=== PATIENT | female | born 1955 | race Caucasian/White ===

== ENCOUNTER 2019-04-16 12:37 | Emergency (ER) | payer MEDICARE ==
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
[2019-04-16] MEDS ORDERED: Lidocaine 2% VISCOUS* 15 ML UDC PO ONE (13:07)
[2019-04-16] MEDS ORDERED: NS 0.9% 1000 ML** 1,000 ML IV ONE (13:08)
[2019-04-16 13:09] LABS: ABS Basophils 0.1 10^3/ul (0-0.2); ABS Eosinophils 0.1 10^3/ul (0-0.6); ABS Lymphocytes 3.7 10^3/ul (1.0-4.8); ABS Monocytes 0.8 10^3/ul (0-0.8); ABS Neutrophils 1.7 10^3/ul (1.5-7.7); Eosinophil % 0.9 %; Hematocrit 35 % (35-47); Hemoglobin 12.4 g/dL (12.0-16.0); Lymphocyte % 59.5 %; Mean Corpuscular HGB Conc 35 g/dL (31-36); Mean Corpuscular Hemoglobin 31 pg (27-31); Mean Corpuscular Volume 87 fL (80-97); Mean Platelet Volume 8.1 fL (7.4-10.4); Nucleated Red Blood Cells % 0.3; Platelet Count 159 10^3/uL (150-450); Red Blood Count 4.05 10^6 /uL (3.70-4.87); Red Cell Distribution Width 14 % (10-15); White Blood Count 6.3 10^3/uL (3.5-10.8)
[2019-04-16 13:14] LABS: INR 1.03 (0.82-1.09)
[2019-04-16] MEDS ORDERED: Al Hydrox/Mg Hydrox/Simet LIQ* 30 ML UDC PO ONE (13:22)
[2019-04-16 13:36] LABS: Albumin 3.8 g/dL (3.2-5.2); Calcium 9.3 mg/dL (8.6-10.3); Potassium 2.9 mmol/L (3.5-5.0); Total Bilirubin 0.6 mg/dL (0.2-1.0)
[2019-04-16 13:43] LABS: Albumin/Globulin Ratio 1.2 (1-3); BUN/Creatinine Ratio 8.6 (8-20); EGFR African American 85.9 (>60); Globulin 3.2 g/dL (2-4)
[2019-04-16 13:50] LABS: Influenza A Molecular Negative (Negative); Influenza B Molecular Negative (Negative)
--- OUTSIDE RECORDS SUMMARY | 2019-04-16 14:05 | XMS REPORT | Continuity of Care Document ---
:1955 External Reference #:[id number] Author Name Kristofer Angel Address [address] [place] [address] Care Team Providers Name Role Phone [employer] [facility] [employer] Care Team Information Wedding Cake [employer] [facility] - Care Team Information Wedding Cake Designer [phone] Gastroenterology Juanita Cardoso - Dermatology Care Team Information Wedding Cake Designer [facility] - Diagnostic Care Team Information Wedding Cake Designer [phone] Radiology Owen Damon MD - Family Medicine Care Team Information Wedding Cake Designer [phone] Art Villalobos ([place] - Direct) Care Team Information Wedding Cake Designer - Otolaryngology Jamie Downey MD - Cardiovascular Care Team Information Wedding Cake Designer Disease Yasmeen Corral - Pulmonary Disease Care Team Information Wedding Cake Designer [facility] - Care Team Information Wedding Cake Designer [phone] [facility] Physical Care Team Information Wedding Cake Designer [phone] Therapy - Physical Therapy Problems Active Problems Provider Date Hyperlipidemia Owen Damon M.D. Onset: 11/28/2010 Depressive disorder Owen Damon M.D. Onset: 03/01/2011 Benign essential hypertension Owen Damon M.D. Onset: 03/01/2011 Hypothyroidism Owen Damon M.D. Onset: 03/01/2011 Non-neoplastic nevus Owen Damon M.D. Onset: 03/01/2011 Obesity Owen Damon M.D. Onset: 03/19/2012 Obstructive sleep apnea syndrome Owen Damon M.D. Onset: 03/19/2012 History of polyp of colon Owen Damon M.D. Onset: 03/12/2015 Knee pain Owen Damon M.D. Onset: 12/24/2015 Essential tremor Owen Damon M.D. Onset: 12/29/2016 Urinary tract infectious disease Owen Damon M.D. Onset: 02/25/2019 Headache Owen Damon M.D. Onset: 02/25/2019 Other hyperlipidemia Owen Damon M.D. Onset: 02/16/2018 Social History Type Date Description Comments Sex Unknown Tobacco Use Start: Unknown Nonsmoker ETOH Use Occasionally consumes beer Tobacco Use Start: Unknown Patient has never smoked Smoking Status Reviewed: 03/15/19 Patient has never smoked Allergies, Adverse Reactions, Alerts Active Allergies Reaction Severity Comments Date Sulfa Drugs rash 05/30/1997 Spider Bites hives 11/05/2013 Medications Active Medications SIG Qnty Indications Ordering Date Provider Physical Therapy treatment and Love evaluation of [place]dor[place], 0 cervicogenic Afnp-C headache Meclizine HCL take1- 2 tablets 30tabs H81.312 Oliva Burgess, 25mg Tablets by mouth at hs as CEMENT BLOCK MAKER 9 needed for dizziness Hydrochlorothiazide take 1 tablet once 90tabs Owen F. 25mg daily Shallish, 3 Tablets M.D. Nystatin apply twice a day 1bottle Owen F. [id number]/GM Powder as needed Shallish, 3 M.D. Atorvastatin Calcium Take 1 Tablet By 90tabs Owen F. 10mg Mouth Every Other Shallish, 3 Tablets Day M.D. Fluoxetine HCL take 2 capsules 180caps Owen F. 40mg Capsules once daily Shallish, 2 M.D. Xanax 1-2 tabs by mouth 60tabs Owen F. 0.25mg Tablets as needed Shallish, 6 M.D. Melatonin qhs Owen F. 10mg Capsules Shallish, 0 M.D. Multi-Vitamin/Minerals 1 po qd 90tabs Owen F. Tablets Shallish, 0 M.D. Levothyroxine Sodium Take 1 Tablet By 90tabs Owen F. 50mcg Mouth Once Daily Shallish, 0 Tablets M.D. Carvedilol 1 by mouth every 90tabs Owen F. 3.125mg Tablets day Shallish, 0 M.D. History Medications Amoxicillin/Clavulanate 1 twice a 14tabs Owen F. 03/03/2019 - Potassium day w/ Shallish, M.D. 03/14/2019 875-125mg Tablets food. Ciprofloxacin HCL 1 tab by 14tabs N39.0 Oliva Burgess, 02/08/2019 - 250mg Tablets mouth twice CEMENT BLOCK MAKER 02/25/2019 a day x 7 days Immunizations CPT Code Status Date Vaccine Lot # [id number] Given 02/25/2019 Pneumococcal Conjugate Vacc-13 [id number] Given 12/20/2017 Influenza Vac, [place]riv[place], [place] [address] Given 12/29/2016 Influenza vac quadrivalent preservative free 6 [id number] months and up 46[address] Given 12/24/2015 Influenza Vac, Quadrivalent, Slit Virus, Im [id number] 22591 Given 03/12/2015 Influenza Vac, Quadrivalent, Slit Virus, Im [id number] 51937 Given 01/01/2013 DO Not Use Split Influenza Virus Vaccine 00336 Given 12/27/2011 DO Not Use Split Influenza Virus Vaccine [id number] Given 03/01/2011 Split Influenza Medicare: Fluzone [id number] 80954 Given 01/06/2010 DO Not Use Split Influenza Virus Vaccine [id number] 01125 Given 01/26/2009 Tdap Tetanus, W Pertussis [id number] 44683 Given 12/13/2007 DO Not Use Split Influenza Virus Vaccine [id number] 43830 Given 06/09/1998 Td Immunization, For Use In Individuals 7 Years Or Older Vital Signs Date Vital Result Comment 03/15/2019 9:56am BP Systolic 134 mmHg BP Diastolic 66 mmHg Heart Rate 78 /min Body Temperature 97.3 F Respiratory Rate 16 /min Height 59 inches 4'11" Weight 167.12 lb BMI (Body Mass Index) 33.8 kg/m2 02/25/2019 2:03pm BP Systolic 148 mmHg BP Diastolic 88 mmHg Heart Rate 64 /min Body Temperature 98.4 F Height 59 inches 4'11" Weight 168.00 lb BMI (Body Mass Index) 33.9 kg/m2 Results Test Acquired Date Facility Test Result H/L Range Note Ua - Micro (Fma) 02/25/2019 [facility] Appearance clear (607)- - Color yellow Glucose, Urine (Fma/CMC/CTX) neg Bilirubin neg Ketones neg SP Grav <=1.005 Blood trace PH 5.5 Protein neg Urobil 0.2 Nitrite neg Leukocytes (Fma/CMC/Centrex) positive Hyaline - /Lpf Granular - /Lpf WBC (Fma,Centrex) 0-2 RBC 2-3 Mucus (Fma/CBC/Centrex) - /Lpf Epith rare /Lpf Bacteria 4+ /Hpf Amorphous (Fma/CMC/Centrex) - /Lpf Crystals, Fluid (Fma/CMC/CTX) - Z#Comments - Urine Culture And 02/25/2019 [facility] Urine Culture SEE RESULT 1 Sensitivities BELOW Comprehensive 02/25/2019 [facility] Natali(a) Sodium 141 mEq/L 134-149 Metabolic Prof Potassium 3.7 mEq/L 3.6-5.5 Chloride 95 mEq/L 94-112 Carbon Dioxide 28 mEq/L 21-32 Glucose 76 mg/dL 70-105 BUN 12 mg/dL 6-26 Creatinine 0.7 mg/dL 0.6-1.4 BUN/Creat Ratio 17.1 CALC 8.0-36.0 Calcium 10.3 mg/dL High 8.6-10.2 2 Total Protein 7.7 g/dL 6.4-8.3 Albumin 4.4 g/dL 3.8-5.5 Globulin 3.3 g/dL 2.0-4.8 A/G Ratio 1.3 CALC 0.6-2.3 Alk. Phosphatase 64 U/L 30-110 Alt (SGPT) 24 U/L 7-35 Ast (Sgot) 24 U/L 5-34 Total Bilirubin 0.5 mg/dL 0.2-1.3 GFR Non- >60 ml/min/1.73m^ >=60 GFR >60 ml/min/1.73m^ >=60 Lipid Profile 02/25/2019 Andrew Natali([facility]) Cholesterol 210 mg/dL High 120-200 Triglycerides 233 mg/dL High 30-200 HDL Cholesterol 40 mg/dL 30-85 LDL (Calculated) 123 CALC 0-129 VLDL Cholesterol 47 mg/dL 0-50 HDL Risk Factor 5.3 CALC High 0.0-4.4 Laboratory test finding 02/25/2019 Andrew Hurst([facility]) TSH 3.51 mIU/L 0.50-6.00 Free T4 0.83 ng/dL 0.75-1.54 CK 156 U/L High 26-140 3 CBC Electronic a 02/25/2019 Andrew Hurst([facility]) WBC 6.3 x10^3/UL 4.0- 10.0 RBC 4.30 x10^6/UL 3.93-6.00 HGB 13.4 g/dL 12.0-17.0 HCT 39 % 35-50 MCV 90.2 fL 80.0-95.0 MCH 31.2 pg 25.6-32.2 MCHC 34.5 g/dL 32.2-36.0 RDW-CV 13.0 % 11.6-14.4 PLT 265 x10^3/UL 163-400 MPV 10.0 fL 9.4-12.4 Corazon# 2.93 x10^3/UL 1.56-6.13 Lymph# 2.26 x10^3/UL 1.18-3.74 [place]# 0.75 x10^3/UL 0.24-0.82 Eos # 0.3 x10^3/UL 0.0-0.5 Baso # 0.06 x10^3/UL 0.01-0.08 Corazon% 46.7 % 34.0-70.0 Lymph % 36.1 % 20.0-52.0 [place]% 12.0 % 5.0-12.0 Eos% 4.2 % 0.7-7.0 Baso% 1.0 % 0.1-1.2 Laboratory test 02/25/2019 [facility] [place] Thinprep SEE RESULT 4 finding w/rfx([facility]) BELOW Ua - Micro (a) 02/08/2019 [facility] Appearance cloudy (607)- - Color yellow Glucose, Urine (Fma/CMC/CTX) neg Bilirubin neg Ketones neg SP Grav 1.010 Blood large PH 6.0 Protein ssa trace Urobil 0.2 Nitrite positive Leukocytes (Fma/CMC/Centrex) large Hyaline - /Lpf Granular - /Lpf WBC (Fma,Centrex) >100 RBC 20-30 Mucus (Fma/CBC/Centrex) - /Lpf Epith rare /Lpf Bacteria 3+ /Hpf Amorphous (Fma/CMC/Centrex) - /Lpf Crystals, Fluid (Fma/CMC/CTX) - Basic Metabolic Profile 01/04/2019 Morales Natali(a) Sodium 138 mEq/L 134-149 Potassium 3.6 mEq/L 3.6-5.5 Chloride 101 mEq/L 94-112 Carbon Dioxide 30 mEq/L 21-32 Glucose 139 mg/dL High 70-105 BUN 12 mg/dL 6-26 Creatinine 0.7 mg/dL 0.6-1.4 BUN/Creat Ratio 17.1 CALC 8.0-36.0 Calcium 9.9 mg/dL 8.6-10.2 GFR Non- >60 ml/min/1.73m^ >=60 GFR >60 ml/min/1.73m^ >=60 1 SEE RESULT BELOW Name: DOT CORONA : [address]: Owen Damon MD Acct: [id number] Unit: [id number] AGE: 63 Location: [facility] Re02/25/19 SEX: F Status: REG REF SPEC: [id number] DAVID: 02/25/[address] [facility] DR: Owen Damon MD REQ: [id number] RECD: 02/25/19 STATUS: COMP _ SOURCE: URINE SPDES: ORDERED: Urine Culture COMMENTS: [id number] lazar urine top Urine Source: Random Procedure Result Reported Site Urine Culture Final 02/28/19- 1101 ML Organism 1 ESCHERICHIA COLI Phelps Count >100,000 (Many) CFU/ML 1. ESCHERICHIA COLI M.I.C. RX --------- ------ Ampicillin >=32 R Cefazolin <=4 S Cefepime <=1 S Ceftriaxone <=1 S Ciprofloxacin 0.5 S Gentamicin <=1 S Levofloxacin 1 S Meropenem <=0.25 S Nitrofurantoin <=16 S Tetracycline >=16 R Pipercillin/Tazobactam <=4 S Trimethoprim/Sulfamethoxazole <=20 S Amoxicillin/Clavulanic Acid 8 S Aztreonam <=1 S Contact the Microbiology Department for any additional antibiotic reporting. * - Main Lab . END OF REPORT DEPARTMENT OF PATHOLOGY, [address] [place] [address] Charles Escobedo M.D. Director [facility] # [id number] 2 RESULTS VERIFIED BY REPEAT ANALYSIS 3 RESULTS VERIFIED BY REPEAT ANALYSIS 4 SEE RESULT BELOW Name: DOT CORONA Emeli : [address]: Owen Damon MD Acct: [id number] Unit: [id number] AGE: 63 Location: [facility] Re02/25/19 SEX: F Status: REG REF SPEC: [id number] DAVID: 02/25/[address] [facility] DR: Owen Damon MD REQ: [id number] RECD: 02/25/19 STATUS: SOUT _ ORDERED: TP IMAGE ANALYS, HPV/Thin Prep COMMENTS: [id number] FINAL DIAGNOSIS Negative for Intraepithelial lesion or Malignancy HPV RESULTS Date Time Test Result Flag (u) Normal Range 02/25/19 1542 HPV REGINALD Negative Negative The high-risk HPV types detected by the assay include: 16, 18, 31, 33, 35, 39, 45, 51, 52, 56, 58, 59, 66, and 68. SPECIMEN(S) RECEIVED A. Ectocervical/Endocervical CYTOLOGY ADEQUACY Specimen Adequacy: Satisfactory of evaluation Transformation zone component cannot be definitely identified due to presence of atrophy or other hormonal changes CONTINUED ON NEXT PAGE DEPARTMENT OF PATHOLOGY, [facility] [place], [place] [address] Charles Escobedo M.D. Director [facility] # [id number] CYTOLOGY PATIENT INFORMATION Patient Information: HPV: High risk HPV RNA testing regardless of pap results. Actual Specimen Date: 02/25/19 Spec Date if unknown: 2015 ?: N Post Menopausal?: Y Hysterectomy?: N Previous Abnormal Pap Smears?:Y Signed by and Reported on: RICKEY Baum (ASCP) [id number] This Pap test was evaluated with the assistance of the Ligandal Test Imaging System. Due to cytologic findings at the manager basketball microscope, comprehensive manual rescreening by a Document Control Specialist may be required. The Pap Smear is a screening test designed to aid in the detection of premalignant and malignant conditions of the uterine cervix. It is not a diagnostic procedure and should not be used as the sole means of detecting cervical cancer. Both false- positive and false- negative reports do occur. Depending on your risk status, a Pap smear should be obtained and evaluated every 1-3 years. END OF REPORT DEPARTMENT OF PATHOLOGY, [address] [place] [address] Charles Escobedo M.D. Director [facility] # [id number] Procedures Date Code Description Status 01/27/2019 [id number] Mammogram Completed 03/03/2018 [id number] Mammogram Completed 02/08/2017 [id number] Mammogram Completed 04/17/2015 [id number] Colonoscopy Completed 03/20/2015 [id number] Mammogram Completed 12/30/2013 [id number] Mammogram Completed 03/28/2012 [id number] Mammogram Completed 03/09/2011 [id number] Mammogram Completed 02/08/2010 [id number] Mammogram Completed 03/17/2009 [id number] Colonoscopy Completed 02/06/2009 [id number] Mammogram Completed 12/21/2007 [id number] Mammogram Completed Medical Devices Description No Information Available Encounters Type Date Location Provider Dx Diagnosis Office Visit 02/25/2019 2:00p [facility] Owen Damon M.D. R51 Headache G47.33 Obstructive sleep apnea (adult) (pediatric) F32.89 Other specified depressive episodes I78.1 Nevus, non-neoplastic I10 Essential (primary) hypertension E03.9 Hypothyroidism, unspecified N39.0 Urinary tract infection, site not specified Z00.00 Encntr for general adult medical exam w/o abnormal findings E78.49 Other hyperlipidemia Z23 Encounter for immunization Office Visit 02/08/2019 3:30p Main Office KRISSY Villafuerte N39.0 Urinary tract infection, site not specified H81.312 Aural vertigo, left ear Office Visit 01/04/2019 9:30a Main Office KRISSY Villafuerte R51 Headache G47.33 Obstructive sleep apnea (adult) (pediatric) Assessments Date Code Description Provider 03/15/2019 N39.0 Urinary tract infection, site not Kristofer Angel specified 03/15/2019 R51 Headache Kristofer Angel 03/03/2019 N39.0 Urinary tract infection, site not Owen Damon M.D. specified 02/25/2019 R51 Headache Owen Damon M.D. 02/25/2019 G47.33 Obstructive sleep apnea (adult) Owen Damon M.D. (pediatric) 02/25/2019 F32.89 Other specified depressive episodes Owen Damon M.D. 02/25/2019 I78.1 Nevus, non-neoplastic Owen Damon M.D. 02/25/2019 I10 Essential (primary) hypertension Owen Damon M.D. 02/25/2019 E03.9 Hypothyroidism, unspecified Owen Damon M.D. 02/25/2019 N39.0 Urinary tract infection, site not Owen Damon M.D. specified 02/25/2019 Z00.00 Encounter for general adult medical Owen Damon M.D. examination without abnormal findings 02/25/2019 E78.49 Other hyperlipidemia Owen Damon M.D. 02/25/2019 Z23 Encounter for immunization Owen Damon M.D. 02/08/2019 N39.0 Urinary tract infection, site not KRISSY Villafuerte specified 02/08/2019 H81.312 Aural vertigo, left ear KRISSY Villafuerte 01/04/2019 R51 Headache KRISSY Villafuerte 01/04/2019 G47.33 Obstructive sleep apnea (adult) KRISSY Villafuerte (pediatric) Plan of Treatment Future Appointment(s):05/28/2019 10:00 am - Owen Damon M.D. at Main [facility]v6803/15/2019 - Esther Angel-CN39.0 Urinary tract infection, site not specifiedNew Labs:Ua - Micro (Fma), Ordered: 03/15/19Urine Culture (Fma/CMC) , Ordered: 03/15/19R51 HeadacheFollow up:Followup:. (Follow up)AllNew Medication :Physical Therapy - treatment and evaluation of cervicogenic headacheComments: Medication Management Patient Understands medications she's taking? Yes No Are there Barriers to Adherence? Yes No Has the patient been asked about herbal supplements and therapies, and OTC meds? Yes No Care Plan1. Patient has been queried about patient's goals/preferences and functional/lifestyle goals at relevant visits. If relevant, describe: na2. Treatment goals as explained to the patient: abovecontinued sx resolution further sotomayor eval and rx 3. Are there barriers to meeting treatment goals? Yes No If Yes, please describe:4. Self-Management goals as described to the patient: Yes No it does appear that your uti has responded to rx , we will do a test of cure rx for pt f/u routine and prn Functional Status Description No Information Available Mental Status Description No Information Available Referrals Refer to Dr Reason for Referral Status Appt Yasmeen Corral evalute and treat sleep apnea Created [address] [place] [address] [phone] [facility] evaluate and treat chronic daily Created headache [address] [place] [address] [place] [address] [phone] [facility] Physical PHYSICAL THERAPY evaluate and Created Therapy treat for neck and left shoulder pain [address] [place] [address] [phone]
[2019-04-16] MEDS ORDERED: Potassium Chlor TAB* 20 MEQ TAB.ER PO ONE (14:31)
[2019-04-16] MEDS ORDERED: Famotidine IV* 10 MG/ML 2 ML (20 mg) IV SLOW PU ONE (14:33)
[2019-04-16] MEDS ORDERED: Iohexol 350* (CONTRAST) 500 ML MDV IV ONE (14:38)
[2019-04-16 16:50] VITALS: BP 128/67
== END 2019-04-16 16:49 | disposition home or self-care (01) ==
LOC: ED 12:37
DX: R07.9 Chest pain, unspecified (principal); R51 Headache; E03.9 Hypothyroidism, unspecified; E78.00 Pure hypercholesterolemia, unspecified; I10 Essential (primary) hypertension; F41.9 Anxiety disorder, unspecified; Z87.440 Personal history of urinary (tract) infections; Z88.2 Allergy status to sulfonamides; Z79.899 Other long term (current) drug therapy
CPT/HCPCS: 36415; 71046; 71275; 74174; 80053; 83690; 84484; 85025; 85610; 87086; 93005; 96361; 96374; 99284; A9270-GY; Q9967

== ENCOUNTER 2020-02-11 07:45 | Inpatient (IN) ==
[~2020-02-11 07:45] MED LIST: Buffered Lidocaine 1% SYRIN 1 ml INTRADERM ONE; Lactated Ringers 1000 ml BAG 1,000 ML IV SCH
[2020-02-11] MEDS ORDERED: ceFAZolin 2 GM PREMIX 2 GM/50 ML BAG ONE (10:55)
[2020-02-11] MEDS ORDERED: Midazolam 2 mg/2 ml VIAL 1 mg/ml 2 ml VIAL (2 mg) ONE ×2 (11:34→12:45)
[2020-02-11] MEDS ORDERED: fentaNYL 100 mcg/2 ml 50 MCG/ML VIAL ONE (11:34)
[2020-02-11] MEDS ORDERED: Dexamethasone IV 4 MG/ML VIAL 1 ml VIAL ONE (12:46)
[2020-02-11] MEDS ORDERED: ROPIVACAINE 5 MG/ML 30 ML BTL (0.5%) ONE ×2 (12:47→13:06)
[2020-02-11] MEDS ORDERED: Ketamine HCL 50 mg/ml 10 ml VIAL (500 MG) ONE (13:54)
[2020-02-11] MEDS ORDERED: EPHEDrine (Pressors) 50 MG/ML VIAL ONE (14:10)
[2020-02-11] MEDS ORDERED: Ondansetron ODT 4 mg TAB 4 MG TAB PO PRN (15:56)
[2020-02-11] MEDS ORDERED: Lactulose 30 ml UDC PO PRN (15:56)
[2020-02-11] MEDS ORDERED: diPHENhydraMINE IV 50 MG/ML 1 ml VIAL (BENADRYL) IV PRN (15:56)
[2020-02-11] MEDS ORDERED: diPHENhydraMINE 25 mg TAB PO PRN (15:56)
[2020-02-11] MEDS ORDERED: Ondansetron 4 mg VIAL 2 MG/ML 2 ml VIAL IV PRN (15:56)
[2020-02-11] MEDS ORDERED: Magnesium Hydroxide LIQ 30 ML UDC PO PRN (15:56)
[2020-02-11] MEDS ORDERED: Morphine 2 MG/ML SYRINGE IV PRN (15:56)
[2020-02-11] MEDS ORDERED: Naloxone 0.4 mg VIAL 0.4 mg/ml 1 ml VIAL IV PRN (16:36)
[2020-02-11] MEDS ORDERED: DiMENhydriNATE IV 50 mg/ml 1 ml VIAL IV PUSH PRN (16:36)
[2020-02-11] MEDS ORDERED: fentaNYL 100 mcg/2 ml 50 MCG/ML VIAL IV PRN (16:36)
[2020-02-11] MEDS: Lactated Ringers 1000 ml BAG 1,000 ML IV SCH (17:38)
[2020-02-11] MEDS: Magnesium Hydroxide LIQ 30 ML UDC PO SCH (20:26)
[2020-02-11] MEDS: ceFAZolin 1 GM ADVAN 1 GM in NS 0.9% 50 ML 50 ML IVPB SCH (22:16)
[2020-02-12] MEDS: Lactated Ringers 1000 ml BAG 1,000 ML IV SCH (03:59)
[2020-02-12] MEDS: ceFAZolin 1 GM ADVAN 1 GM in NS 0.9% 50 ML 50 ML IVPB SCH ×2 (06:01→13:13)
[2020-02-12 08:31] LABS: Hematocrit 31 % (35-47); Hemoglobin 10.8 g/dL (12.0-16.0); Mean Platelet Volume 8.4 fL (7.4-10.4); Platelet Count 201 10^3/uL (150-450)
[2020-02-12 08:49] LABS: BUN/Creatinine Ratio 18.4 (8-20); Calcium 8.4 mg/dL (8.6-10.3); EGFR African American 92.1 (>60); EGFR Non-African American 76.1 (>60); Potassium 3.9 mmol/L (3.5-5.0)
[2020-02-12] MEDS ORDERED: Vitamin THERAPEUTIC TAB PO SCH (09:00)
[2020-02-12] MEDS: Magnesium Hydroxide LIQ 30 ML UDC PO SCH (09:12)
[2020-02-12 11:47] VITALS: BP 122/56
== END 2020-02-12 13:57 | disposition home health service (06) | DRG 470 ==
LOC: AA 10:36 → SSU 17:25
PROVIDERS: ADMIT Orthopaedic Surgery Adult Reconstructive Orthopaedic Surgery; ATTEND Orthopaedic Surgery Adult Reconstructive Orthopaedic Surgery